=== PATIENT | female | born 1940 | race Caucasian/White ===

== ENCOUNTER 2017-11-13 15:28 | Day surgery (SDC) | payer OTHER, BC ==
[~2017-11-13] VITALS: Ht 154.9 cm; Wt 65.0 kg
[2017-11-13] MEDS ORDERED: ATORVASTATIN CA40 MG PO (16:06)
[2017-11-13] MEDS ORDERED: LANSOPRAZOLE30 MG PO (16:07)
[2017-11-13] MEDS ORDERED: ASPIRIN81 M2 PO (16:07)
[2017-11-13] MEDS ORDERED: XANAX0.5 MG PO (16:10)
[2017-11-13 16:33] VITALS: BP 181/76
[2017-11-13 16:44] LABS: HEMATOCRIT 38.3 % (36.0-46.0); MCH 30.7 PG (29.0-34.0); MCHC 34.5 G/DL (30.0-36.0); MCV 89.1 FL (83-99); MEAN PLAT.VOLUME 10.1 uM^3 (9.5-12.4); PLATELET COUNT 211 K/uL (156-360); RBC DIS.WIDTH-CV 12.7 % (11.8-14.6); RBC DIS.WIDTH-SD 41.8 % (39-53); WHITE BLOOD COUNT 7.1 K/uL (4.1-10.2)
[2017-11-13 16:55] LABS: ANION GAP 11 MEQ/L (2-14); CHLORIDE 109 MEQ/L (99-109); POTASSIUM 3.6 MEQ/L (3.7-5.4); SAMPLE HEMOLYSIS CHECK 0; SAMPLE ICTERIC CHECK 0; SAMPLE LIPEMIA CHECK 0; SODIUM 142 MEQ/L (136-147); TOTAL BILIRUBIN 0.4 MG/DL (0.0-1.0)
[2017-11-13 17:01] LABS: ALKALINE PHOSPHATASE 108 IU/L (3-129); GFR ESTIMATE (CALCULATED) > 59 mL/min/; GLUCOSE 116 mg/dL (70-99); UREA NITROGEN (BUN) 16 mg/dL (9-23)
[2017-11-13 20:45] VITALS: BP 152/68
[2017-11-13 21:05] VITALS: BP 142/60
== END 2017-11-13 21:30 | disposition home or self-care (01) ==
LOC: SDC 15:28
PROVIDERS: Ophthalmology
DX: H44.001 Unspecified purulent endophthalmitis, right eye (principal); Z79.82 Long term (current) use of aspirin
CPT/HCPCS: 80053; 85027; 87102; 87205; 93005; J0690; J1100; J2795; J3300